=== PATIENT | female | born 1965 | race Caucasian/White ===

== ENCOUNTER 2024-04-20 07:40 | Day surgery (SDC) | payer OTHER ==
[2024-04-19 12:27] LABS: BASOPHILS % 0.5 % (0.0-1.0); EOSINOPHILS # (AUTO) 0.1 (0.0-0.4); EOSINOPHILS % 1.6 % (0.0-6.0); HEMATOCRIT 43.5 % (34.2-44.1); HEMOGLOBIN 14.3 g/dL (12.0-16.0); LYMPHOCYTES % 22.8 % (18.0-39.1); MEAN CORPUSCULAR HEMOGLOBIN 29.7 pg (28-32); MEAN CORPUSCULAR HGB CONC 32.9 g/dL (31-35); MEAN CORPUSCULAR VOLUME 90.4 fL (81-99); MONOCYTES # (AUTO) 0.6 (0.2-0.8); MONOCYTES % 6.9 % (4.4-11.3); NEUTROPHILS # (AUTO) 5.8 (2.1-6.9); PLATELET COUNT 280 x10e3/uL (140-360); RED BLOOD COUNT 4.81 x10e6/uL (3.6-5.1); RED CELL DISTRIBUTION WIDTH 12.1 % (11.7-14.4); WHITE BLOOD COUNT 8.58 x10e3/uL (4.8-10.8)
[2024-04-19 12:44] LABS: INR 0.91; PROTHROMBIN TIME 12.8 seconds (11.9-14.5)
[2024-04-19 12:58] LABS: ALANINE AMINOTRANSFERASE 26 IU/L (0-55); ALBUMIN 4.5 g/dL (3.5-5.0); ALBUMIN/GLOBULIN RATIO 1.5 (0.8-2.0); ALKALINE PHOSPHATASE 39 IU/L (40-150); ANION GAP 18.3 mmol/L (8-16); BILIRUBIN,TOTAL 0.6 mg/dL (0.2-1.2); BLOOD UREA NITROGEN 18 mg/dL (7-26); BUN/CREATININE RATIO 22 (6-25); CARBON DIOXIDE 23 mmol/L (22-29); CHLORIDE 103 mmol/L (98-107); CHOL/HDL RATIO 3.1 (3.0-3.6); CHOLESTEROL 149 MD/DL (0-199); CREATININE, SERUM 0.82 mg/dL (0.57-1.11); EST GLOMERULAR FILTRATION RATE 83 ML/MIN (>=60); GLUCOSE 87 mg/dL (74-118); HDL CHOLESTEROL 48 MG/DL (40-60); LDL CHOLESTEROL 81 MG/DL (60-130); SODIUM 141 mmol/L (136-145); TOTAL PROTEIN 7.5 g/dL (6.5-8.1); TRIGLYCERIDES 98 MG/DL (0-149)
[2024-04-19 13:20] LABS: POTASSIUM 3.3 mmol/L (3.5-5.1)
[2024-04-19 13:49] LABS: COVID 19 ANTIGEN NOT DETECTED (NEGATIVE)
[~2024-04-20] VITALS: Ht 172.7 cm; Wt 83.9 kg
[2024-04-20] VITALS (15 sets, daily range): BP systolic 96–114; BP diastolic 50–65; PULSE 59–68; RESP 8–23; TEMP 96.8; O2SAT 95–100
[~2024-04-20 07:40] MED LIST: ASPIRIN EC81 MG PO; JARDIANCE10 MG; LOSARTAN-HCTZ1 EAC1; MEDROL4 M2 PO; METFORMIN HCL500 MG PO; METOPROLOL SUCC25 MG PO; ROSUVASTATIN CA20 MG; VALTREX1000 MG PO; VITAMIN D31250 MCG; ZETIA10 MG PO
[2024-04-20] MEDS: ASPIRIN 81 MG CHEW TAB ONE (08:23)
[2024-04-20] MEDS ORDERED: SODIUM CHLORIDE 0.9% 1000ML 1,000 ML ONE ×2 (08:23→09:14)
[2024-04-20] MEDS ORDERED: MIDAZOLAM HCL 2 MG/2 ML VIAL ONE (08:24)
[2024-04-20] MEDS ORDERED: HEPARIN SOD (PORCINE) 1000 UNIT/ML 30ML ONE (08:24)
[2024-04-20] MEDS ORDERED: VERAPAMIL HCL 2.5 MG/ML 2 ML VIAL ONE (08:24)
[2024-04-20] MEDS ORDERED: LIDOCAINE HCL 2% LOCAL 20 ML VIAL ONE (08:25)
[2024-04-20] MEDS ORDERED: IOPAMIDOL 370 MG/ML 100 ML INFUS..BTL INJ ONE (08:25)
[2024-04-20] MEDS ORDERED: FENTANYL CITRATE/PF 100MCG/2 ML INJ ONE (08:25)
[2024-04-20] MEDS ORDERED: HEPARIN SOD/SOD CHLORIDE 2,000 ML ONE (08:25)
[2024-04-20] MEDS ORDERED: NITROGLYCERIN/D5W 200 MCG/ML 250 ML ONE (08:26)
[2024-04-20] MEDS ORDERED: SODIUM CHLORIDE 0.9% 0 ML ONE (09:17)
[2024-04-20] MEDS ORDERED: PHENYLEPHRINE HCL 1% 10 MG/ML VIAL ONE (09:17)
== END 2024-04-20 13:15 | disposition home or self-care (01) ==
LOC: CATH LAB 07:40
PROVIDERS: ATTEND Internal Medicine Cardiovascular Disease
DX: I25.10 Atherosclerotic heart disease of native coronary artery without angina pectoris (principal); R94.39 Abnormal result of other cardiovascular function study; I10 Essential (primary) hypertension; E78.5 Hyperlipidemia, unspecified; I49.3 Ventricular premature depolarization; R07.9 Chest pain, unspecified; E11.8 Type 2 diabetes mellitus with unspecified complications; E66.01 Morbid (severe) obesity due to excess calories; Z11.52 Encounter for screening for COVID-19; Z01.810 Encounter for preprocedural cardiovascular examination; Z01.812 Encounter for preprocedural laboratory examination; Z79.82 Long term (current) use of aspirin; Z79.84 Long term (current) use of oral hypoglycemic drugs; Z79.899 Other long term (current) drug therapy; Z82.49 Family history of ischemic heart disease and other diseases of the circulatory system
CPT/HCPCS: 0223U; 36415 ×2; 80053; 80061; 82948; 85025; 85610; 93005; 93458; C1887; J1644; J2003; J2250; J3010; J7030; Q9967; J2371; J7050